=== PATIENT | female | born 1995 | race African-American/Black ===

== ENCOUNTER 2018-10-06 20:57 | Emergency (ER) | payer OTHER ==
[2018-10-06 21:15] VITALS: TEMP 97.7; BMI 21.2
--- NOTE | 2018-10-06 21:16 | PDOC ---
Rapid Medical Evaluation Chief Complaint: Syncope/Near Syncope Time Seen by Provider: 10/06/18 21:10 Medical Evaluation: Allergies Allergy/AdvReac Type Severity Reaction Status Date / Time Penicillins Allergy Verified 11/14/15 09:29 10/06/18 21:12 Patient c/o: hx anxiety, started to feel anxious while visiting mother at [facility], then syncoped while in mother's room, vomited x 3, pt crying in triage Patient on brief exam: vss Patient ordered for: labs, urine, ekg The patient will proceed to the ED Discharge Disposition - Diagnosis Syncope - Referrals Referrals: Stacie Ortiz [Primary Care Provider] - - Patient Instructions - Post Discharge Activity
[2018-10-06] MEDS ORDERED: ONDANSETRON 4 MG/2 ML VIAL IVPUSH ONE (21:59)
[2018-10-06] MEDS ORDERED: SODIUM CHLORIDE 1,000 ML IV STA (21:59)
[2018-10-06 22:27] LABS: BASO % 0.5 % (0-2.0); EOS % 0.8 % (0-4.5); HEMATOCRIT 37.9 % (32.4-45.2); HEMOGLOBIN 13.1 GM/dL (10.7-15.3); LYMPH % 24.5 % (8-40); MCH 29.2 pg (25.7-33.7); MCHC 34.6 g/dl (32.0-36.0); MEAN CELL VOLUME 84.3 fl (80-96); MEAN PLT VOLUME 8.1 fl (7.5-11.1); MONO % 6.2 % (3.8-10.2); PLATELET COUNT 290 K/MM3 (134-434); RBC 4.49 M/mm3 (3.60-5.2); RDW 12.8 % (11.6-15.6); WHITE BLOOD COUNT 5.2 K/mm3 (4.0-10.0)
[2018-10-06] MEDS ORDERED: ONDANSETRON 4 MG/2 ML VIAL ONE (22:48)
[2018-10-06 22:58] LABS: ALBUMIN 4.3 g/dl (3.4-5.0); ALK PHOS 92 U/L (45-117); ANION GAP 7 MMOL/L (8-16); BILIRUBIN,TOTAL 0.4 mg/dL (0.2-1); BLOOD UREA NITROGEN 11 mg/dL (7-18); CALCIUM 9.1 mg/dL (8.5-10.1); CHLORIDE 104 mmol/L (98-107); CO2 28 mmol/L (21-32); CREATININE 0.8 mg/dL (0.55-1.3); GLUCOSE,RANDOM 93 mg/dL (74-106); POTASSIUM 4.1 mmol/L (3.5-5.1); SGOT/AST 20 U/L (15-37); SGPT/ALT 21 U/L (13-61); SODIUM 138 mmol/L (136-145); TOT PROT 8.8 g/dl (6.4-8.2)
--- NOTE | 2018-10-06 23:00 | PDOC ---
History of Present Illness - General History Source: Patient Exam Limitations: No Limitations <Kirsty Alamo - Last Filed: 10/06/18 23:00> <Sydnee Garcias - Last Filed: 10/07/18 00:14> - General Chief Complaint: Syncope/Near Syncope Stated Complaint: Syncope/Near Syncope Time Seen by Provider: 10/06/18 21:10 - History of Present Illness Initial Comments: 10/06/18 23:00 The patient is a 23 year old female, with a significant past medical history of anxiety, who presents to the emergency department s/p syncope with, abdominal pain, nausea, vomiting (x4), and diarrhea (loose stool). As per patient, when she woke up this morning feeling weak experiencing diffuse abdominal pain, nausea, vomiting, and diarrhea. Patient notes after leaving work she began to feel dizzy while driving to visit her mother in the hospital. Patient endorses that when visiting her mother she began to feel dizzy again, syncopized, prompting her visit to the ER. She notes an associated headache since her fall. Patient is currently on her menses and notes similar episodes in the past due to dehydration. Patient endorses increased stress and anxiety attacks over the past few days. She is unaware if she hit her head. She denies recent fevers or chills. She denies recent dysuria, frequency, urgency or hematuria. She denies recent chest pain or shortness of breath. Allergies: Penicillins. Past surgical history: None reported. Social history: Nonsmoker. Denies EtOH use and recreational drug use. Primary Care Physician: Dr. Ortiz (Kirsty Alamo) Past History <Kirsty Alamo - Last Filed: 10/06/18 23:00> - Past Medical History Asthma: Yes COPD: No - Immunization History Immunization Up to Date: Yes - Suicide/Smoking/Psychosocial Hx Smoking History: Never smoked Have you smoked in the past 12 months: No Number of Cigarettes Smoked Daily: 1 Information on smoking cessation initiated: No Hx Alcohol Use: No Drug/Substance Use Hx: No Substance Use Type: Marijuana <Sydnee Garcias - Last Filed: 10/07/18 00:14> - Past Medical History Allergies/Adverse Reactions: Allergies Allergy/AdvReac Type Severity Reaction Status Date / Time Penicillins Allergy Verified 10/06/18 21:15 Home Medications: Ambulatory Orders traZODone HCL [Trazodone HCl] 50 mg PO DAILY 10/06/18 Review of Systems - Review of Systems Able to Perform ROS?: Yes All Other Systems: Reviewed and Negative <Kirsty Alamo - Last Filed: 10/06/18 23:00> <Sydnee Garcias - Last Filed: 10/07/18 00:14> - Review of Systems Comments:: 10/06/18 23:01 CONSTITUTIONAL: Absent: fever, no chills, no fatigue EYES: Absent: visual changes ENT: Absent: ear pain, no sore throat CARDIOVASCULAR: Absent: chest pain, no palpitations RESPIRATORY: Absent: cough, no SOB GI: Present: Nausea. Vomiting. Diarrhea. Abdominal pain. GENITOURINARY: Absent: dysuria, no frequency, no hematuria MUSKULOSKELETAL: Absent: back pain, no arthralgia, no myalgia SKIN: Absent: rash NEURO: Present: Headache. Syncope. Dizziness. (Kirsty Alamo) *Physical Exam <Kirsty Alamo - Last Filed: 10/06/18 23:00> <Sydnee Garcias - Last Filed: 10/07/18 00:14> - Vital Signs Last Vital Signs Temp Pulse Resp BP Pulse Ox 97.7 F 105 H 16 138/85 98 10/06/18 21:12 10/06/18 21:12 10/06/18 21:12 10/06/18 21:12 10/06/18 21:12 - Physical Exam Comments: 10/06/18 23:01 GENERAL: Well developed, well nourished. Awake and alert. No acute distress. HEENT: Normocephalic, atraumatic. PERRLA, EOMI. No conjunctival pallor. Sclera are non- icteric. Moist mucous membranes. Oropharynx is clear. NECK: Supple. Full ROM. No JVD. Carotid pulses 2+ and symmetric, without bruits. No thyromegaly. No lymphadenopathy. CARDIOVASCULAR: Regular rate and rhythm. No murmurs, rubs, or gallops. Distal pulses are 2+ and symmetric. PULMONARY: No evidence of respiratory distress. Lungs clear to auscultation bilaterally. No wheezing, rales or rhonchi. ABDOMINAL: Soft. Non-tender. Non-distended. No rebound or guarding. No organomegaly. Normoactive bowel sounds. MUSCULOSKELETAL Normal range of motion at all joints. No bony deformities or tenderness. No CVA tenderness. EXTREMITIES: No cyanosis. No clubbing. No edema. No calf tenderness. SKIN: Warm and dry. Normal capillary refill. No rashes. No jaundice. NEUROLOGICAL: Alert, awake, appropriate. Cranial nerves 2-12 intact. Normal speech. No focal neurological deficits. PSYCHIATRIC: Cooperative. Good eye contact. Appropriate mood and affect. (Kirsty Alamo) - Procedure Monitoring Vital Signs: Procedure Monitoring Vital Signs Temperature 97.7 F 10/06/18 21:12 Pulse Rate 105 H 10/06/18 21:12 Respiratory Rate 16 10/06/18 21:12 Blood Pressure 138/85 10/06/18 21:12 O2 Sat by Pulse Oximetry (%) 98 10/06/18 21:12 ED Treatment Course - LABORATORY CBC & Chemistry Diagram: 10/06/18 22:20 10/06/18 22:20 <Kirsty Alamo - Last Filed: 10/06/18 23:00> - LABORATORY CBC & Chemistry Diagram: 10/06/18 22:20 10/06/18 22:20 <Sydnee Garcias - Last Filed: 10/07/18 00:14> - ADDITIONAL ORDERS Additional order review: Laboratory Results 10/06/18 10/06/18 10/06/18 22:50 22:50 22:20 Sodium 138 Potassium 4.1 Chloride 104 Carbon Dioxide 28 Anion Gap 7 L BUN 11 Creatinine 0.8 Creat Clearance w eGFR > 60 Random Glucose 93 Calcium 9.1 Total Bilirubin 0.4 AST 20 ALT 21 Alkaline Phosphatase 92 Creatine Kinase 153 Creatine Kinase Index 0.6 CK-MB (CK-2) < 1.0 Troponin I < 0.02 Total Protein 8.8 H Albumin 4.3 Urine Color Yellow Urine Appearance Cloudy Urine pH 8.0 D Ur Specific [place] 1.023 Urine Protein 2+ H Urine Glucose (UA) Negative Urine Ketones 1+ H Urine Blood 2+ H Urine Nitrite Negative Urine Bilirubin Negative Urine Urobilinogen Negative Ur Leukocyte Esterase Negative Urine WBC (Auto) 1 Urine RBC (Auto) 4 Ur Epithelial Cells Rare Urine Yeast Rare Urine HCG, Qual Negative 10/06/18 22:20 RBC 4.49 MCV 84.3 MCHC 34.6 RDW 12.8 MPV 8.1 Neutrophils % 68.0 D Lymphocytes % 24.5 D Monocytes % 6.2 Eosinophils % 0.8 Basophils % 0.5 D - Medications Given in the ED: ED Medications Discontinued Medications Generic Name Dose Route Start Last Admin Trade Name Terri PRN Reason Stop Dose Admin Acetaminophen 975 mg 10/06/18 23:45 10/07/18 00:05 Tylenol - PO 10/06/18 23:46 975 mg ONCE STA Administration Sodium Chloride 1,000 mls @ 1,000 mls/hr 10/06/18 21:59 10/06/18 22:50 Normal Saline - IV 10/06/18 22:58 1,000 mls/hr ASDIR STA Administration Ondansetron HCl 4 mg 10/06/18 21:59 10/06/18 22:50 Zofran Injection IVPUSH 10/06/18 22:00 4 mg ONCE ONE Administration *DC/Admit/Observation/Transfer <Kirsty Alamo - Last Filed: 10/06/18 23:00> <Sydnee Garcias - Last Filed: 10/07/18 00:14> Diagnosis at time of Disposition: Nausea vomiting and diarrhea, Vasovagal episode - Discharge Dispostion Disposition: HOME Condition at time of disposition: Stable - Referrals Referrals: Stacie Ortiz [Primary Care Provider] - - Patient Instructions Printed Discharge Instructions: DI for Nausea -- Adult, DI for Vomiting -- Adult, DI for Anxiety -- Adult, DI for Syncope in Adults (Fainting) Additional Instructions: please advance your diet as tolerated Start with liquids and then try solid foods such as bananas,rice ,toast, applesauce return for worsening symptoms - Post Discharge Activity - Attestations Scribe Attestion: 10/06/18 23:01 Documentation prepared by Kirsty Alamo, acting as internist medical doctor md for Sydnee Garcias MD. (Kirsty Alamo)
[2018-10-06 23:06] LABS: URINE APPEARANCE CLOUDY; URINE BILIRUBIN NEGATIVE (<2.0 mg/dL); URINE COLOR YELLOW; URINE GLUCOSE (UA) NEGATIVE (NEGATIVE); URINE KETONE 1+ (NEGATIVE); URINE LEUK ESTERASE NEGATIVE (NEGATIVE); URINE NITRITE NEGATIVE (NEGATIVE); URINE PROTEIN 2+ (NEGATIVE); URINE UROBILINOGEN NEGATIVE mg/dL (0.2-1.0)
[2018-10-06 23:42] LABS: EPI CELLS RARE /HPF (FEW); YEAST RARE
[2018-10-06] MEDS ORDERED: ACETAMINOPHEN 500 MG TABLET (FP) PO STA (23:45)
[2018-10-07] MEDS ORDERED: ACETAMINOPHEN 325 MG TABLET (FP) ONE (00:03)
[2018-10-07 00:20] VITALS: BP 132/78; PULSE 99
--- NOTE | 2018-10-07 11:45 | EKG ---
Test Reason : Blood Pressure : / mmHG Vent. Rate : 085 BPM Atrial Rate : 085 BPM P-R Int : 154 ms QRS Dur : 092 ms QT Int : 356 ms P-R-T Axes : 050 073 051 degrees QTc Int : 423 ms NORMAL SINUS RHYTHM WITH SINUS ARRHYTHMIA NORMAL ECG NO PREVIOUS ECGS AVAILABLE Confirmed by VIKRAM PAGAN, NAHUN ([id number]) on 10/07/2018 11:45:01 AM Referred By: SHAWN Confirmed By:NAHUN SUE MD
== END 2018-10-07 00:20 | disposition home or self-care (01) ==
LOC: JER 20:57
PROC: 3E033GC Introduction of Other Therapeutic Substance into Peripheral Vein, Percutaneous Approach (ICD-10-PCS; principal; 2018-10-06)
DX: R55 Syncope and collapse (principal); R51 Headache; R11.2 Nausea with vomiting, unspecified; R19.7 Diarrhea, unspecified; F41.9 Anxiety disorder, unspecified
CPT/HCPCS: 36415; 80053; 81003; 81015; 82550; 82553; 84484; 84703; 85025; 93005; 93010; 96374; 99284-25; J7030

== ENCOUNTER 2018-10-17 08:21 | Emergency (ER) | payer OTHER ==
[2018-10-17 08:32] VITALS: TEMP 98.9; BMI 24.3
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
[2018-10-17] MEDS ORDERED: KETOROLAC TROMETHAMINE 30 MG/1 ML VIAL IM ONE (09:20)
[2018-10-17] MEDS ORDERED: KETOROLAC TROMETHAMINE 30 MG/1 ML VIAL ONE (09:27)
[2018-10-17] MEDS ORDERED: diazePAM 5 MG TABLET PO ONE (11:48)
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
[2018-10-17] MEDS ORDERED: diazePAM 5 MG TABLET ONE (13:05)
[2018-10-17 13:11] VITALS: BP 131/86; PULSE 101
--- NOTE | 2018-10-18 10:20 | PDOC ---
Patient Follow-up (Call Back) - Post ED Follow - Up Condition at time of discharge: Stable Disposition at time of original discharge: HOME Reason for Call Back: Complaint/Condition F/U - Disposition Additional Instructions/Notes: Pt called back, as she was having pain and jaw stiffness. She was given valium in ED, which did help. I will prescribe high dose motrin and robaxin for her to take PRN.
== END 2018-10-17 13:22 | disposition home or self-care (01) ==
LOC: JERFT 08:21 → JER 08:21
DX: S09.93XA Unspecified injury of face, initial encounter (principal); Y04.2XXA Assault by strike against or bumped into by another person, initial encounter; Y93.89 Activity, other specified; Y92.89 Other specified places as the place of occurrence of the external cause; Y99.8 Other external cause status; Y07.9 Unspecified perpetrator of maltreatment and neglect
CPT/HCPCS: 36415; 70450-TC; 70486-TC; 84703; 99282-25

== ENCOUNTER 2021-10-13 13:57 | Emergency (ER) | payer OTHER ==
[2021-10-13 14:32] VITALS: BMI 25.0
[2021-10-13] MEDS ORDERED: ACETAMINOPHEN 1000 MG/100 ML VIAL IVPB ONE (16:24)
[2021-10-13] MEDS ORDERED: LACTATED RINGERS SOLUTION 1000 ML INFUS.BAG IV ONE ×2 (16:24→18:09)
[2021-10-13] MEDS ORDERED: ACETAMINOPHEN INJECTION 100 ML IVPB ONE (16:32)
[2021-10-13 16:55] LABS: BASO % 0.2 % (0-2.0); EOS % 0.1 % (0-4.5); HEMATOCRIT 37.3 % (32.4-45.2); HEMOGLOBIN 12.2 GM/dL (10.7-15.3); LYMPH % 2.5 % (8-40); MCH 26.4 pg (25.7-33.7); MCHC 32.9 g/dl (32.0-36.0); MEAN CELL VOLUME 80.3 fl (80-96); MEAN PLT VOLUME 8.4 fl (7.5-11.1); MONO % 13.4 % (3.8-10.2); NEUT % 83.8 % (42.8-82.8); PLATELET COUNT 247 10^3/uL (134-434); RBC 4.64 M/mm3 (3.60-5.2); WHITE BLOOD COUNT 5.8 K/mm3 (4.0-10.0)
[2021-10-13 17:01] LABS: INR 1.17 (0.83-1.09); PROTHROMBIN TIME (PATIENT) 13.7 SEC (9.7-13.0)
[2021-10-13 17:03] LABS: ACTIVATED PTT 29.4 SECONDS (25.2-36.5)
[2021-10-13 17:19] LABS: CHLORIDE 104 mmol/L (98-107); SODIUM 136 mmol/L (136-145)
[2021-10-13 17:21] LABS: ANION GAP 6 MMOL/L (8-16); CO2 26 mmol/L (21-32); GLUCOSE,RANDOM 104 mg/dL (74-106)
[2021-10-13 17:22] LABS: ALBUMIN 3.7 g/dl (3.4-5.0)
[2021-10-13 17:24] LABS: CREATININE 0.8 mg/dL (0.55-1.3)
[2021-10-13 17:25] LABS: SGOT/AST 17 U/L (15-37); SGPT/ALT 17 U/L (13-61)
[2021-10-13 17:26] LABS: BILIRUBIN,TOTAL 0.4 mg/dL (0.2-1); TOT PROT 8.2 g/dl (6.4-8.2)
[2021-10-13 17:27] LABS: ALK PHOS 94 U/L (45-117)
[2021-10-13] MEDS ORDERED: METHOCARBAMOL 500 MG TABLET PO ONE (18:09)
[2021-10-13] MEDS ORDERED: KETOROLAC TROMETHAMINE 15 MG/ML VIAL IVPUSH ONE (18:09)
[2021-10-13] MEDS ORDERED: KETOROLAC TROMETHAMINE 15 MG/ML VIAL ONE (18:34)
[2021-10-13] MEDS ORDERED: METHOCARBAMOL 500 MG TABLET ONE (18:34)
[2021-10-13 20:15] LABS: URINE APPEARANCE CLEAR; URINE BILIRUBIN NEGATIVE (NEGATIVE); URINE COLOR YELLOW; URINE GLUCOSE (UA) NEGATIVE (NEGATIVE); URINE KETONE 1+ (NEGATIVE); URINE LEUK ESTERASE NEGATIVE (NEGATIVE); URINE NITRITE NEGATIVE (NEGATIVE); URINE PROTEIN NEGATIVE (NEGATIVE)
[2021-10-13 20:30] LABS: OPIATES, URI NEGATIVE (NEGATIVE); URINE BARBITURATES NEGATIVE (NEGATIVE); URINE BENZODIAZEPINES NEGATIVE (NEGATIVE)
[2021-10-13 20:31] LABS: PHENCYCLIDINE,URINE NEGATIVE (NEGATIVE)
[2021-10-13 20:45] VITALS: BP 110/68; PULSE 97; TEMP 98.6
[2021-10-13 20:45] LABS: COCAINE, UR NEGATIVE (NEGATIVE); METHADONE, UR NEGATIVE (NEGATIVE); URINE AMPHETAMINES NEGATIVE (NEGATIVE)
== END 2021-10-13 21:11 | disposition home or self-care (01) ==
LOC: JER 13:57
PROC: 3E0333Z Introduction of Anti-inflammatory into Peripheral Vein, Percutaneous Approach (ICD-10-PCS; principal; 2021-10-13)
PROC: 3E0333Z Introduction of Anti-inflammatory into Peripheral Vein, Percutaneous Approach (ICD-10-PCS; 2021-10-13)
DX: S09.90XA Unspecified injury of head, initial encounter (principal); R55 Syncope and collapse; R07.9 Chest pain, unspecified; W01.0XXA Fall on same level from slipping, tripping and stumbling without subsequent striking against object, initial encounter
CPT/HCPCS: 36415; 70450-TC; 71046-TC-FY; 72125-TC; 72128-TC; 72131-TC; 80053; 80307; 81003; 82550; 82553; 84484; 84703; 85025; 85610; 85730; 87086; 93005; 93010; 99285-25; C9803; J0131; U0003; U0005

== ENCOUNTER 2021-10-16 07:54 | Emergency (ER) | payer OTHER ==
[2021-10-16 08:23] VITALS: BP 107/76; PULSE 89; TEMP 97.8; BMI 24.2
[2021-10-16] MEDS ORDERED: MAG HYDROX/AL HYDROX/SIMETH 30 ML UNIT-DOSE CUP PO ONE (10:08)
[2021-10-16] MEDS ORDERED: FAMOTIDINE 20 MG TABLET PO ONE (10:08)
[2021-10-16] MEDS ORDERED: FAMOTIDINE 20 MG TABLET ONE (10:28)
[2021-10-16] MEDS ORDERED: MAG HYDROX/AL HYDROX/SIMETH 30 ML UNIT-DOSE CUP ONE (10:28)
[2021-10-16] MEDS ORDERED: METOCLOPRAMIDE HCL 10 MG TABLET (FP) PO ONE ×2 (10:56→11:08)
[2021-10-16] MEDS ORDERED: DEXAMETHASONE LIQUID 0.5 MG/5 ML PO ONE (11:09)
[2021-10-16] MEDS ORDERED: DEXAMETHASONE SOD PHOSPHATE 10 MG/1 ML VIAL ONE (11:10)
== END 2021-10-16 11:47 ==
LOC: JERFT 07:54
DX: J20.9 Acute bronchitis, unspecified (principal)
CPT/HCPCS: 71046-TC-FY; 87804; 87807; 99284-25